=== PATIENT | female | born 1985 | race Caucasian/White ===

== ENCOUNTER 2020-12-12 19:56 | Inpatient (IN) | payer OTHER, SELFPAY ==
[~2020-12-12] VITALS: Ht 170.2 cm; Wt 122.7 kg
[2020-12-12] MEDS ORDERED: PRENATAL TABLE1 EAC2 PO (20:17)
[2020-12-12] MEDS ORDERED: ASPI81CH PO (20:17)
[2020-12-12 20:30] LABS: BASOPHILS ABSOLUTE AUTO 0.01 K/mm3 (0.00-0.23); BASOPHILS PERCENT AUTO 0 % (0-2); EOSINOPHILS ABSOLUTE AUTO 0.05 K/mm3 (0.00-0.68); EOSINOPHILS PERCENT AUTO 0 % (0-6); Hematocrit 34.6 % (33.0-51.0); Hemoglobin 12.1 g/dL (11.5-16.0); IMMATURE GRAN ABSOLUTE AUTO 0.06 K/mm3 (0.00-0.10); IMMATURE GRAN PERCENT AUTO 1 % (0-1); LYMPHOCYTES ABSOLUTE AUTO 2.04 K/mm3 (0.84-5.20); LYMPHOCYTES PERCENT AUTO 18 % (21-46); MONOCYTES PERCENT AUTO 6 % (4-13); Mean Corpuscular HGB 31.2 pg (26.0-34.0); Mean Corpuscular Volume 89 fL (80-100); NEUTROPHILS ABSOLUTE AUTO 8.28 K/mm3 (1.96-9.15); NEUTROPHILS PERCENT AUTO 74 % (41-73); Platelet Count 218 K/mm3 (150-400); RDW Coefficient Variation 13.2 % (11.7-14.2); RDW Standard Deviation 43.5 fL (35.1-46.3); Red Blood Cell Count 3.88 M/mm3 (3.80-5.20); White Blood Cell Count 11.14 K/mm3 (4.00-11.30)
--- NOTE | 2020-12-14 08:11 | NUR ---
NOTIFIED DR. LANG REGARDING LOWER BP THIS MORNING. NO NEW ORDERS AT THIS TIME. CONT TO MONITOR PT.
--- NOTE | 2020-12-14 10:21 | NUR ---
ASSIST MOM REPORTST THAT HER PREATS ARE FIMER SHINC SHE DELIVERED. NIPPLES DO NO STAND OUT AND SHE IS HAVING DIFFICULTY LATCHING. DEMONSTRATED CORRECT SHIELD PLACEMENT WELL WEANING TEACHING . MOM TO PRACTICE WKITH OUT SHIELD AFTER 5 MINUTES AT BREAST WITH SHIELD. MOM VERY LONVING WITH BABY.
[2020-12-14] MEDS ORDERED: IBU800 MG PO (18:29)
--- NOTE | 2020-12-14 20:37 | NUR ---
DISCHARGE PAPERWORK GIVEN TO PATIENT AND INSTRUCTIONS REVIEWED. PT DENIES ANY FURTHER QUESTIONS OR CONCERNS AT THIS TIME. RN REVIEWED BOARDER STATUS WITH PATIENT AND SHE VERBALIZED UNDERSTANDING.
== END 2020-12-14 20:36 | disposition home or self-care (01) | DRG 807 ==
LOC: OBS 19:56 → BC 19:59 → OBS 20:08 → BC 20:09
PROVIDERS: ADMIT Obstetrics & Gynecology
PROC: 3E0P7VZ Introduction of Hormone into Female Reproductive, Via Natural or Artificial Opening (ICD-10-PCS; 2020-12-12)
PROC: 10E0XZZ Delivery of Products of Conception, External Approach (ICD-10-PCS; principal; 2020-12-13)
PROC: 0KQM0ZZ Repair Perineum Muscle, Open Approach (ICD-10-PCS; 2020-12-13)
PROC: 10907ZC Drainage of Amniotic Fluid, Therapeutic from Products of Conception, Via Natural or Artificial Opening (ICD-10-PCS; 2020-12-13)
PROC: 3E033VJ Introduction of Other Hormone into Peripheral Vein, Percutaneous Approach (ICD-10-PCS; 2020-12-13)
PROC: 3E0R3BZ Introduction of Anesthetic Agent into Spinal Canal, Percutaneous Approach (ICD-10-PCS; 2020-12-13)
PROC: 00HU33Z Insertion of Infusion Device into Spinal Canal, Percutaneous Approach (ICD-10-PCS; 2020-12-13)
DX: O48.0 Post-term pregnancy (principal); Z37.0 Single live birth; Z3A.41 41 weeks gestation of pregnancy; O99.214 Obesity complicating childbirth; E66.01 Morbid (severe) obesity due to excess calories; O34.13 Maternal care for benign tumor of corpus uteri, third trimester; D25.9 Leiomyoma of uterus, unspecified; O70.1 Second degree perineal laceration during delivery
CPT/HCPCS: 36415; 51702; 82947; 85025; A9270; J1885; J2001; J2210; J2405; J2590; J3010; J7120

== ENCOUNTER → 2022-04-24 | Outpatient (CLI) | payer OTHER ==
[~2022-04-24] MED LIST: ASPI81CH PO; IBU800 MG PO; PRENATAL TABLE1 EAC2 PO
[2022-04-26 16:11] LABS: HPV 16 Negative (Negative); HPV 18 Negative (Negative); HPV OTHER HR TYPES Negative (Negative)
== END | disposition home or self-care (01) ==
LOC: LAB SHORT 16:31 → LAB 16:31
PROVIDERS: Advanced Practice Midwife
DX: Z01.419 Encounter for gynecological examination (general) (routine) without abnormal findings (principal)
CPT/HCPCS: 87624; G0123

== ENCOUNTER → 2024-09-06 | Outpatient (CLI) | payer OTHER | END | disposition home or self-care (01) | LOC: LAB 17:21 → LAB SHORT 17:21 | DX: O09.91 Supervision of high risk pregnancy, unspecified, first trimester (principal) | CPT/HCPCS: 87081; 87150 ==

== ENCOUNTER 2024-10-03 19:04 | Inpatient (IN) | payer OTHER ==
[~2024-10-03] VITALS: Ht 175.3 cm; Wt 127.7 kg
[2024-10-03] MEDS ORDERED: Lactated Ringer's 1,000 ML IV PRN (19:30)
[2024-10-03] MEDS ORDERED: Misoprostol 200 MCG Tab PR PRN (19:30)
[2024-10-03] MEDS ORDERED: Misoprostol 200 MCG Tab BC PRN (19:30)
[2024-10-03] MEDS ORDERED: Tranexamic Acid 100 ML IV SCH (19:30)
[2024-10-03] MEDS ORDERED: Acetaminophen 500 MG Tab PO PRN (19:30)
[2024-10-03] MEDS ORDERED: Oxytocin 10 Unit / ML Vial IM PRN (19:30)
[2024-10-03] MEDS ORDERED: Carboprost Tromethamine 250 MCG/ML 1ML Amp IM PRN (19:30)
[2024-10-03] MEDS ORDERED: OXYTOCIN/RINGER'S LACTATE 500 ML IV PRN (19:30)
[2024-10-03] MEDS ORDERED: Ondansetron HCl 2 MG / ML 2ML Vial IV PRN (19:30)
[2024-10-03] MEDS ORDERED: Methylergonovine Maleate 0.2MG / ML 1ML Amp IM PRN (19:30)
[2024-10-03] MEDS ORDERED: Calcium Carbonate 500 MG Tab Chew PO PRN (19:35)
[2024-10-03] MEDS ORDERED: CeFAZolin Sodium 2,000 MG in NS 100 ML IV ONE (20:05)
[2024-10-03] MEDS ORDERED: Misoprostol 25 MCG Tab VAG PRN (20:05)
[2024-10-03 20:34] LABS: BASOPHILS ABSOLUTE AUTO 0.01 K/mm3 (0.00-0.23); BASOPHILS PERCENT AUTO 0 % (0-2); EOSINOPHILS ABSOLUTE AUTO 0.07 K/mm3 (0.00-0.68); EOSINOPHILS PERCENT AUTO 1 % (0-6); Hematocrit 32.8 % (33.0-51.0); Hemoglobin 11.5 g/dL (11.5-16.0); IMMATURE GRAN ABSOLUTE AUTO 0.05 K/mm3 (0.00-0.10); IMMATURE GRAN PERCENT AUTO 1 % (0-1); LYMPHOCYTES ABSOLUTE AUTO 1.66 K/mm3 (0.84-5.20); LYMPHOCYTES PERCENT AUTO 18 % (21-46); MONOCYTES ABSOLUTE AUTO 0.59 K/mm3 (0.16-1.47); MONOCYTES PERCENT AUTO 6 % (4-13); Mean Corpuscular HGB 31.3 pg (26.0-34.0); Mean Corpuscular HGB Conc 35.1 g/dL (31.5-36.5); Mean Corpuscular Volume 89 fL (80-100); Mean Platelet Volume 10.3 fL (9.1-12.4); NEUTROPHILS PERCENT AUTO 74 % (41-73); Platelet Count 190 K/mm3 (150-400); RDW Coefficient Variation 13.7 % (11.7-14.2); RDW Standard Deviation 45.1 fL (35.1-46.3); Red Blood Cell Count 3.67 M/mm3 (3.80-5.20); White Blood Cell Count 9.18 K/mm3 (4.00-11.30)
[2024-10-03 20:57] VITALS: BP 102/64
[2024-10-03 23:01] VITALS: BP 102/57
[2024-10-04] VITALS (28 sets, daily range): BP systolic 87–138; BP diastolic 50–78
[2024-10-04] MEDS ORDERED: Lactated Ringer's 1,000 ML IV SCH ×2 (03:00→06:45)
[2024-10-04] MEDS ORDERED: FentaNYL Citrate 50 MCG/ML 2 ML Injection IV PRN (03:00)
[2024-10-04] MEDS ORDERED: ePHEDrine Sulfate 50 MG/ML 1ML Injection XX PRN (03:00)
[2024-10-04] MEDS ORDERED: FentaNYL 2mcg/ml-Bup 0.1% Epd 250 ML EPI PRN (03:00)
[2024-10-04] MEDS ORDERED: Lactated Ringer's 1,000 ML IV PRN (03:00)
[2024-10-04] MEDS ORDERED: CeFAZolin 1000MG in D5W 50 ML IV SCH (06:00)
[2024-10-04] MEDS ORDERED: CeFAZolin Sodium 1,000 MG in NS 50 ML IV SCH (06:00)
[2024-10-04] MEDS ORDERED: Lanolin Cream TOP PRN (06:40)
[2024-10-04] MEDS ORDERED: Witch Hazel/Glycerin PADS TOP PRN (06:45)
[2024-10-04] MEDS ORDERED: Ketorolac Tromethamine 30mg Vial IV PRN (06:45)
[2024-10-04] MEDS ORDERED: Acetaminophen 325 MG TABLET PO PRN (06:45)
[2024-10-04] MEDS ORDERED: Ibuprofen 400 MG Tab PO PRN (06:45)
[2024-10-04] MEDS ORDERED: OXYTOCIN/RINGER'S LACTATE 500 ML IV SCH (06:45)
[2024-10-04] MEDS ORDERED: Carboprost Tromethamine 250 MCG/ML 1ML Amp IM PRN (06:45)
[2024-10-04] MEDS ORDERED: Benzocaine Topical Anesthetic Spray 60GM TOP PRN (06:45)
[2024-10-04] MEDS ORDERED: Docusate Sodium 100 MG Cap PO PRN (06:50)
[2024-10-04] MEDS ORDERED: FLU VACC TS2024-25(6MOS UP)/PF 45 MCG/0.5 ML SYRINGE IM ONE (06:50)
[2024-10-04] MEDS ORDERED: Methylergonovine Maleate 0.2MG / ML 1ML Amp IM PRN (06:50)
[2024-10-04] MEDS ORDERED: Misoprostol 200 MCG Tab BC PRN (06:55)
[2024-10-04] MEDS ORDERED: Prenatal Vit/FE Fumarate/FA 1 Tab PO SCH (09:00)
[2024-10-05 04:41] VITALS: BP 99/58
[2024-10-05 09:15] VITALS: BP 96/63
[2024-10-05] MEDS ORDERED: ACET500 PO (10:15)
[2024-10-05] MEDS ORDERED: IBUP800 PO (10:16)
== END 2024-10-05 10:56 | disposition home or self-care (01) | DRG 807 ==
LOC: OBS 19:04 → BC 19:06 → OBS 19:12 → BC 19:13
PROVIDERS: ADMIT Obstetrics & Gynecology
PROC: 10E0XZZ Delivery of Products of Conception, External Approach (ICD-10-PCS; principal; 2024-10-04)
PROC: 0KQM0ZZ Repair Perineum Muscle, Open Approach (ICD-10-PCS; 2024-10-04)
PROC: 3E0R3BZ Introduction of Anesthetic Agent into Spinal Canal, Percutaneous Approach (ICD-10-PCS; 2024-10-04)
PROC: 00HU33Z Insertion of Infusion Device into Spinal Canal, Percutaneous Approach (ICD-10-PCS; 2024-10-04)
DX: O42.02 Full-term premature rupture of membranes, onset of labor within 24 hours of rupture (principal); Z37.0 Single live birth; O99.214 Obesity complicating childbirth; O48.0 Post-term pregnancy; O69.9XX0 Labor and delivery complicated by cord complication, unspecified, not applicable or unspecified; Z88.2 Allergy status to sulfonamides; Z91.030 Bee allergy status; Z88.0 Allergy status to penicillin; Z91.013 Allergy to seafood; O70.1 Second degree perineal laceration during delivery; Z79.899 Other long term (current) drug therapy; Z3A.40 40 weeks gestation of pregnancy; O99.824 Streptococcus B carrier state complicating childbirth; O99.345 Other mental disorders complicating the puerperium; F53.0 Postpartum depression
CPT/HCPCS: 36415; 51702; 85025; 86850; 86900; 86901; A9270; J0690; J1885; J2405; J2590; J3010; J7120